=== PATIENT | male | born 1975 | race Caucasian/White ===

== ENCOUNTER 2016-04-02 19:25 | Inpatient (IN) | payer MEDICAID ==
--- NOTE | 2016-04-02 20:03 | EDPHY ---
H & P Time Seen by Provider: 04/02/16 20:03 HPI/ROS: CHIEF COMPLAINT: Fever HISTORY OF PRESENT ILLNESS: This 41-year-old patient of Jose Alfredo Germain has a history of testicular cancer got bleomycin chemotherapy on Saturday. Started having a fever or Saturday and has been on ciprofloxacin since Saturday. Today's fever was 102 at home and has been above 101.5 since he woke up this morning. Of note he has been spending a lot of time with a friend who was admitted to our hospital yesterday with pneumonia. He has a little bit of a chest congestion but no other symptoms. Fever is not associated with vomiting or diarrhea or skin rash. Moderate today. REVIEW OF SYSTEMS: Eye: no change in vision ENT: no sore throat Cardiac: no chest pain or syncope Pulmonary: No cough. No short of breath. Abdomen: no vomiting, diarrhea, abdominal pain Musculoskeletal: no back pain Skin: no rash Neuro: no headache Constitutional: HPI : no urinary symptoms A comprehensive 10 point review of systems is otherwise negative aside from elements mentioned in the history of present illness. PAST MEDICAL HISTORY: Testicular cancer spread to the lymph nodes. Right hand surgery. Social history: Here with . General Appearance: Alert and conversant, cooperative. Eyes: No scleral icterus. ENT, Mouth: Normal mucous membranes. Alopecia. Respiratory: Normal respiratory effort, breath sounds equal, lungs are clear to auscultation. Cardiovascular: Regular rate and rhythm. Gastrointestinal: Abdomen is soft and non tender. Neurological: Alert and oriented x3. Normally conversant. Face symmetric, normal movement and sensation in all extremities. Skin: Warm and dry, no rashes. Musculoskeletal: No peripheral edema and no joint swelling. Psychiatric: Not agitated. Emergency Department course/MDM: CBC, influenza, urine and chest x-ray. Does not meet SIRS criteria, cefipime and admit per oncologist Dr. Carmen at 2104. IV normal saline 2 L. does not look septic or toxic. Blood cultures. Cefepime 2 g IV. Admit to hospitalist. Does not definitively have an infection, antibiotics are given empirically because of neutropenia. [place] 2124. Smoking Status: Heavy smoker Constitutional: Initial Vital Signs Temperature (C) 37.4 C 04/02/16 19:32 Heart Rate 95 04/02/16 19:32 Respiratory Rate 18 04/02/16 19:32 Blood Pressure 129/87 H 04/02/16 19:32 O2 Sat (%) 96 04/02/16 19:32 O2 Delivery Mode Room Air Allergies/Adverse Reactions: No Known Allergies Allergy (Verified 04/02/16 19:30) Home Medications: Medication Instructions Recorded Advil 12/06/15 ACETAMINOPHEN 04/02/16 Ciprofloxacin 04/02/16 Ms Contin 04/02/16 Oxycodone HCl 04/02/16 Medical Decision Making - Diagnostics Imaging: Chest x-ray viewed independently by myself does not show pneumonia. Differential Diagnosis: Differential considered including but not limited to sepsis, pneumonia, UTI, viral syndrome, influenza. Consult/Admit Bed Type: [place] [id number], admit, cultures and cefipime - Data Points Laboratory Results: Laboratory Results 04/02/16 20:19 04/02/16 20:19 04/02/16 04/02/16 04/02/16 20:21 20:19 19:55 WBC 0.32 L* 10^3/uL (3.80-9.50) RBC 2.73 L 10^6/uL (4.40-6.38) Hgb 8.4 L g/dL (13.7-17.5) Hct 23.0 L % (40.0-51.0) MCV 84.2 fL (81.5-99.8) MCH 30.8 pg (27.9-34.1) MCHC 36.5 g/dL (32.4-36.7) RDW 13.2 % (11.5-15.2) Plt Count 79 L 10^3/uL (150-400) MPV 9.5 fL (8.7-11.7) Neut % (Auto) Not Reported Lymph % (Auto) Not Reported [place] % (Auto) Not Reported Eos % (Auto) Not Reported Baso % (Auto) Not Reported Nucleat RBC Rel Count 0.0 % (0.0-0.2) Absolute Neuts (auto) Not Reported Absolute Lymphs (auto) Not Reported Absolute Monos (auto) Not Reported Absolute Eos (auto) Not Reported Absolute Basos (auto) Not Reported Absolute Nucleated RBC 0.00 10^3/uL (0-0.01) Immature Gran % Not Reported Seg Neutrophils % 28 % Band Neutrophils % 3 % Lymphocytes % 46 % Monocytes % 22 % Eosinophils % 1 % Immature Gran # Not Reported Absolute Seg Neuts 0.09 L 10^/uL (1.70-6.50) Absolute Band Neuts 0.01 10^3/uL (0.00-0.70) Absolute Lymphocytes 0.15 L 10^3/uL (1.00-3.00) Absolute Monocytes 0.07 L 10^3/uL (0.30-0.80) Absolute Eosinophils 0.00 L 10^3/uL (0.03-0.40) Differential Comment RBC/WBC/PLT Morphology NORMAL (NORMAL) Atypical Lymphocytes 2+ H Platelet Estimate DECREASED L (ADEQ) Smear Review By Pending Sodium 131 L mEq/L (134-144) Potassium 3.2 L mEq/L (3.5-5.2) Chloride 93 L mEq/L (97-110) Carbon Dioxide 29 mEq/l (22-31) Anion Gap 9 mEq/L (8-16) BUN 13 mg/dL (7-23) Creatinine 0.8 mg/dL (0.7-1.3) Estimated GFR > 60 Glucose 121 H mg/dL (70-100) Calcium 8.3 L mg/dL (8.5-10.4) Urine Color YELLOW Urine Appearance CLEAR Urine pH 5.0 (5.0-7.5) Ur Specific [place] 1.026 (1.002-1.030) Urine Protein NEGATIVE (NEGATIVE) Urine Ketones NEGATIVE (NEGATIVE) Urine Blood NEGATIVE (NEGATIVE) Urine Nitrate NEGATIVE (NEGATIVE) Urine Bilirubin NEGATIVE (NEGATIVE) Urine Urobilinogen 4.0 H EU (0.2-1.0) Ur Leukocyte Esterase NEGATIVE (NEGATIVE) Ur Culture Indicated? NOT INDICATED (NI) Urine Glucose NEGATIVE (NEGATIVE) Influenza Typ A,B (DFA) NEGATIVE FOR FLU (NEGATIVE) Medications Given: Discontinued Medications Cefepime HCl 2 gm/ Dextrose 100 mls @ 200 mls/hr IV EDNOW ONE PRN Reason: Protocol Stop: 04/02/16 21:42 Last Admin: 04/02/16 21:50 Dose: 100 mls Sodium Chloride (Ns) 1,000 mls @ 0 mls/hr IV ONCE ONE PRN Reason: Wide Open Stop: 04/02/16 21:15 Last Admin: 04/02/16 21:15 Dose: 1,000 mls Departure - Departure Disposition: [facility] Acute Clinical Impression: Neutropenic fever Condition: Good
[2016-04-02 20:23] LABS: ADD DIFF? YES; ADD MORPH? NO; ADD SCAN? NO; ATYPICAL LYMPHOCYTE FLAG 90 (0-99); FRAGMENT RBC FLAG 0 (0-99); HEMOGLOBIN 8.4 g/dL (13.7-17.5); LEFT SHIFT FLG 30 (0-99); LIPEMIA HEMOLYSIS FLAG 90 (0-99); MEAN CELL HEMOGLOBIN 30.8 pg (27.9-34.1); MEAN CELL HEMOGLOBIN CONCENTR. 36.5 g/dL (32.4-36.7); MEAN CELL VOLUME 84.2 fL (81.5-99.8); MEAN PLATELET VOLUME 9.5 fL (8.7-11.7); PLATELET CLUMPS FLAG 0 (0-99); PLATELET COUNT 79 10^3/uL (150-400); RED BLOOD CELL COUNT 2.73 10^6/uL (4.40-6.38); RED CELL DISTRIBUTION WIDTH 13.2 % (11.5-15.2)
[2016-04-02 20:28] LABS: ANION GAP 9 mEq/L (8-16); CALCIUM 8.3 mg/dL (8.5-10.4); CARBON DIOXIDE 29 mEq/l (22-31); CHLORIDE 93 mEq/L (97-110); CREATININE 0.8 mg/dL (0.7-1.3); GLOMERULAR FILTRATION RATE > 60; GLUCOSE 121 mg/dL (70-100); POTASSIUM 3.2 mEq/L (3.5-5.2); SODIUM 131 mEq/L (134-144)
[2016-04-02 20:39] LABS: COLOR YELLOW; LEUKOCYTE ESTERASE,URINE NEGATIVE (NEGATIVE); NITRITE,URINE NEGATIVE (NEGATIVE)
[2016-04-02] MEDS ORDERED: CEFEPIME HCL 2 GM in D5W 100 ML IV ONE (21:13)
[2016-04-02] MEDS ORDERED: NS 1,000 ML IV ONE (21:14)
--- NOTE | 2016-04-02 21:42 | DX ---
Chest, PA and lateral. History: Cough. Fever. Findings: Heart size is within normal limits. Pulmonary vascularity is normal. The lungs are clear. No evidence of pleural effusion or pneumothorax. Minimal degenerative change is seen in the thoracic spine. Impression: No evidence of acute cardiopulmonary abnormality.
[2016-04-02 21:49] LABS: PLATELET ESTIMATE DECREASED (ADEQ)
[2016-04-02] MEDS ORDERED: ONDANSETRON DISINTEGRATING 4 MG TAB PO PRN (22:44)
[2016-04-02] MEDS ORDERED: ONDANSETRON 4 MG/2 ML VIAL IVP PRN (22:44)
[2016-04-02] MEDS: POTASSIUM Cl (KCl) 40 MEQ in NS 1,000 ML IV SCH (23:49)
[2016-04-03] MEDS ORDERED: LIDOCAINE 2% VISCOUS 15 ML UDCUP PO PRN (01:50)
--- NOTE | 2016-04-03 01:54 | PDGENHP ---
History and Physical - Chief Complaint Acute fever - History of Present Illness PCP: Dr. Aguila Primary oncologist: Dr. Germain HPI: A 41-year-old male presenting with acute fever characterized as a temperature of a 102 degrees F with associated chest congestion, odynophagia. Fever onset was 4 days ago and duration has been persistent thereafter. He was initially prescribed ciprofloxacin which she has been taking for the past 4 days and has not been alleviating fevers. The patient has been experiencing temperatures of at least 101.5 degrees each morning, and the temperatures are alleviated by ibuprofen and Tylenol. He has been taking fluconazole for his odynophagia he reports that it has alleviated the significant amount of his oral thrush. That being said, his odynophagia has resulted in reduced oral intake and associated weight loss. He is also utilizing viscous lidocaine symptomatically. He otherwise denies any abdominal pain, nausea vomiting or diarrhea. He denies any neck pain, cough, chest pain, shortness of breath. History Information - Allergies/Home Medication List Allergies/Adverse Reactions: No Known Allergies Allergy (Verified 04/02/16 19:30) Home Medications: Advil 12/06/15 [Last Taken 12/07/15] ACETAMINOPHEN 04/02/16 [Last Taken Unknown] Ciprofloxacin 04/02/16 [Last Taken Unknown] Ms Contin 04/02/16 [Last Taken Unknown] Oxycodone HCl 04/02/16 [Last Taken Unknown] I have personally reviewed and updated: family history, medical history, social history, surgical history - Past Medical History Additional medical history: Testicular cancer diagnosed in October of 2015, asthma - Surgical History Additional surgical history: 12/08/2015 left radical orchiectomy with penile condylomata; hernia repair; hand surgery - Family History Additional family history: No recent sick family contacts - Social History Smoking Status: Heavy smoker Alcohol Use: Occasionally Drug Use: None Additional social history: Normally independent in his ADLs Review of Systems ROS: 10pt was reviewed & negative except for what was stated in HPI & below Constitutional: Reports: fever EENMT: Reports: sore throat Physical Exam Temp Pulse Resp BP Pulse Ox 37.3 C 70 16 129/85 H 95 04/02/16 22:42 04/02/16 22:42 04/02/16 22:42 04/02/16 22:42 04/02/16 22:42 Constitutional: no apparent distress, chronically ill appearing, uncomfortable, No not in pain Eyes: PERRL, anicteric sclera, EOMI Ears, Nose, Mouth, Throat: moist mucous membranes, other (With rash on his left cheek, no glossitis) Cardiovascular: regular rate and rhythym, no murmur, rub, or gallop, No edema Respiratory: no respiratory distress, no rales or rhonchi, clear to auscultation Gastrointestinal: soft, non-tender abdomen, no palpable masses, No normoactive bowel sounds (Hyperactive bowel sounds), No distension Genitourinary: no bladder fullness, no bladder tenderness Skin: warm, normal color, no rashes or abrasions, no fluctuance, no induration, No mottled Musculoskeletal: full muscle strength, no muscle tenderness, normal joint ROM, no joint effusions Neurologic: AAOx3, sensation intact bilaterally, No weakness Psychiatric: interacting appropriately, not anxious, not encephalopathic, thought process linear Lab Data & Imaging Review 04/02/16 20:19 04/02/16 20:19 WBC 0.32 10^3/uL (3.80-9.50) L* 04/02/16 20:19 RBC 2.73 10^6/uL (4.40-6.38) L 04/02/16 20:19 Hgb 8.4 g/dL (13.7-17.5) L 04/02/16 20:19 Hct 23.0 % (40.0-51.0) L 04/02/16 20:19 MCV 84.2 fL (81.5-99.8) 04/02/16 20:19 MCH 30.8 pg (27.9-34.1) 04/02/16 20:19 MCHC 36.5 g/dL (32.4-36.7) 04/02/16 20:19 RDW 13.2 % (11.5-15.2) 04/02/16 20:19 Plt Count 79 10^3/uL (150-400) L 04/02/16 20:19 MPV 9.5 fL (8.7-11.7) 04/02/16 20:19 Neut % (Auto) Not Reported 04/02/16 20:19 Lymph % (Auto) Not Reported 04/02/16 20:19 [place] % (Auto) Not Reported 04/02/16 20:19 Eos % (Auto) Not Reported 04/02/16 20:19 Baso % (Auto) Not Reported 04/02/16 20:19 Nucleat RBC Rel Count 0.0 % (0.0-0.2) 04/02/16 20:19 Absolute Neuts (auto) Not Reported 04/02/16 20:19 Absolute Lymphs (auto) Not Reported 04/02/16 20:19 Absolute Monos (auto) Not Reported 04/02/16 20:19 Absolute Eos (auto) Not Reported 04/02/16 20:19 Absolute Basos (auto) Not Reported 04/02/16 20:19 Absolute Nucleated RBC 0.00 10^3/uL (0-0.01) 04/02/16 20:19 Immature Gran % Not Reported 04/02/16 20:19 Seg Neutrophils % 28 % 04/02/16 20:19 Band Neutrophils % 3 % 04/02/16 20:19 Lymphocytes % 46 % 04/02/16 20:19 Monocytes % 22 % 04/02/16 20:19 Eosinophils % 1 % 04/02/16 20:19 Immature Gran # Not Reported 04/02/16 20:19 Absolute Seg Neuts 0.09 10^/uL (1.70-6.50) L 04/02/16 20:19 Absolute Band Neuts 0.01 10^3/uL (0.00-0.70) 04/02/16 20:19 Absolute Lymphocytes 0.15 10^3/uL (1.00-3.00) L 04/02/16 20:19 Absolute Monocytes 0.07 10^3/uL (0.30-0.80) L 04/02/16 20:19 Absolute Eosinophils 0.00 10^3/uL (0.03-0.40) L 04/02/16 20:19 Differential Comment 04/02/16 20:19 RBC/WBC/PLT Morphology NORMAL (NORMAL) 04/02/16 20:19 Atypical Lymphocytes 2+ H 04/02/16 20:19 Platelet Estimate DECREASED (ADEQ) L 04/02/16 20:19 Sodium 131 mEq/L (134-144) L 04/02/16 20:19 Potassium 3.2 mEq/L (3.5-5.2) L 04/02/16 20:19 Chloride 93 mEq/L (97-110) L 04/02/16 20:19 Carbon Dioxide 29 mEq/l (22-31) 04/02/16 20:19 Anion Gap 9 mEq/L (8-16) 04/02/16 20:19 BUN 13 mg/dL (7-23) 04/02/16 20:19 Creatinine 0.8 mg/dL (0.7-1.3) 04/02/16 20:19 Estimated GFR > 60 04/02/16 20:19 Glucose 121 mg/dL (70-100) H 04/02/16 20:19 Calcium 8.3 mg/dL (8.5-10.4) L 04/02/16 20:19 Urine Color YELLOW 04/02/16 19:55 Urine Appearance CLEAR 04/02/16 19:55 Urine pH 5.0 (5.0-7.5) 04/02/16 19:55 Ur Specific [place] 1.026 (1.002-1.030) 04/02/16 19:55 Urine Protein NEGATIVE (NEGATIVE) 04/02/16 19:55 Urine Ketones NEGATIVE (NEGATIVE) 04/02/16 19:55 Urine Blood NEGATIVE (NEGATIVE) 04/02/16 19:55 Urine Nitrate NEGATIVE (NEGATIVE) 04/02/16 19:55 Urine Bilirubin NEGATIVE (NEGATIVE) 04/02/16 19:55 Urine Urobilinogen 4.0 EU (0.2-1.0) H 04/02/16 19:55 Ur Leukocyte Esterase NEGATIVE (NEGATIVE) 04/02/16 19:55 Ur Culture Indicated? NOT INDICATED (NI) 04/02/16 19:55 Urine Glucose NEGATIVE (NEGATIVE) 04/02/16 19:55 Influenza Typ A,B (DFA) NEGATIVE FOR FLU (NEGATIVE) 04/02/16 20:21 Visualized and Interpreted Chest x-ray results: Yes Chest X-Ray results: no infiltrate Assessment & Plan Assessment: 41-year-old male presents with systemic inflammatory response syndrome and neutropenic fever Plan: 1. Systemic inflammatory response syndrome. Acute, new problem this provider, further workup indicated. Evidenced by tachycardia plus documented fever of 102 degrees F prior to presentation plus severe neutropenia, unclear source of infection -continue on high rate IV fluids -blood culture sent -continue empiric IV antibiotics -continue to monitor CBC -engage in any further infectious workup as indicated if symptomatic 2. Neutropenic fever. Acute, persistent fevers x4 days despite oral ciprofloxacin therapy, has consequently failed outpatient oral antibiotic therapy and requires inpatient IV antibiotics -discussed with Dr. Krause, she has reported to me that the patient was initiated on IV cefepime and will continue this q.8 hours -blood culture sent, monitor fever curve -considered the fever could be secondary to severe Jaimee esophagitis and provide ongoing fluconazole therapy -patient remains severely neutropenic -will require at least 24 hours of being afebrile prior to DD escalation of antibiotics -hold on Infectious Disease consultation at this time, unless patient does not defervesce 3. Hyponatremia. Acute, most likely secondary to hypovolemia in the setting of above -continue normal saline and recheck serum sodium level in a.m. 4. Hypokalemia. Most likely secondary to poor oral intake, supplement with IV fluids 5. Suspected esophageal candidiasis. Symptomatically severe, provide pain medications and viscous lidocaine -continue on oral fluconazole -if patient is not symptomatically improving, would recommend considering IV antifungals versus upper endoscopy to evaluate for erosiveness 6. Chronic pain with continuous opiate dependency. Patient's chronic pain is secondary to esophagitis, continue on morphine sulfate 30 mg 3 times daily as well as as needed oxycodone immediate release 5-15 mg q.4 hours p.r.n. 7. Testicular cancer. Reviewed outside records including 12/08/[address] Casanova, characterizing his left radical orchiectomy and outpatient referral to Dr. Germain -patient recently received bleomycin on 03/27/2016 -Dr. Carmen has been contacted by the emergency department and Oncology will consult in this patient's care 8. Pancytopenia. Secondary to chemotherapy, continue to monitor CBC Diet. Regular as tolerated Prophylaxis. High risk patient, from currently contraindicated given thrombocytopenia, SCDs Code. Full Disposition. Anticipated discharge uncertain this time, anticipated length stay is greater than 48 hours warranting inpatient admission status for systemic inflammatory response syndrome in the setting of severe neutropenia requiring further workup and treatment outlined above. The patient's initial observation order was entered in air, patient's order should have initially stated inpatient admission status for all the reasons outlined above.
[2016-04-03] MEDS: ALBUTEROL 60 PUFFS/8 GM MDI IH PRN (01:56)
[2016-04-03] MEDS: morphINE SR 30 MG TAB PO SCH ×4 (02:12→21:41)
[2016-04-03] MEDS: oxyCODONE IR 5 MG TAB PO PRN ×6 (02:12→23:43)
[2016-04-03 04:46] LABS: ADD MORPH? NO; ADD SCAN? NO; ATYPICAL LYMPHOCYTE FLAG 90 (0-99); FRAGMENT RBC FLAG 0 (0-99); HEMATOCRIT 19.8 % (40.0-51.0); HEMOGLOBIN 7.2 g/dL (13.7-17.5); LEFT SHIFT FLG 40 (0-99); LIPEMIA HEMOLYSIS FLAG 90 (0-99); MEAN CELL HEMOGLOBIN 30.6 pg (27.9-34.1); MEAN CELL HEMOGLOBIN CONCENTR. 36.4 g/dL (32.4-36.7); MEAN CELL VOLUME 84.3 fL (81.5-99.8); MEAN PLATELET VOLUME 9.2 fL (8.7-11.7); PLATELET CLUMPS FLAG 10 (0-99); PLATELET COUNT 65 10^3/uL (150-400); RED BLOOD CELL COUNT 2.35 10^6/uL (4.40-6.38); RED CELL DISTRIBUTION WIDTH 13.3 % (11.5-15.2)
[2016-04-03 04:47] LABS: ALANINE AMINOTRANSFERASE 31 IU/L (21-72); ALBUMIN 2.6 g/dL (3.5-5.0); ALKALINE PHOSPHATASE 49 IU/L (38-126); ANION GAP 7 mEq/L (8-16); ASPARTATE AMINOTRANSFERASE 18 IU/L (17-59); BILIRUBIN,TOTAL 0.7 mg/dL (0.1-1.4); CALCIUM 7.8 mg/dL (8.5-10.4); CARBON DIOXIDE 27 mEq/l (22-31); CHLORIDE 100 mEq/L (97-110); CREATININE 0.7 mg/dL (0.7-1.3); GLOMERULAR FILTRATION RATE > 60; GLUCOSE 95 mg/dL (70-100); POTASSIUM 3.9 mEq/L (3.5-5.2); SODIUM 134 mEq/L (134-144); TOTAL PROTEIN 5.5 g/dL (6.3-8.2)
[2016-04-03 04:58] LABS: ADD DIFF? NO
[2016-04-03] MEDS ORDERED: CEFEPIME HCL 2 GM in D5W 100 ML IV SCH (06:00)
[2016-04-03] MEDS ORDERED: FLUCONAZOLE 100 MG TAB PO SCH (09:00)
[2016-04-03] MEDS: ACETAMINOPHEN 325 MG TAB PO PRN ×4 (09:34→23:43)
--- NOTE | 2016-04-03 11:59 | GCON ---
[f rep st] CONSULTATION ONCOLOGY CONSULTATION NOTE. REASON FOR ADMISSION: Neutropenic fever with history of metastatic testicular cancer. 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 The patient's history dates back to November of 2015 when he presented with a several month history of left groin pain and left testicular swelling. He underwent a left inguinal orchiectomy in November demonstrating a 6 cm mixed germ cell tumor which was 70 % embryonal, 20% yolk sac and 10% seminoma. Preoperative beta HCG was elevated at 9.7, LDH was slightly elevated at 294 and alpha-fetoprotein was 238. Postoperatively, his alpha-fetoprotein fell to 127. Initial CT scan showed bilateral axillary and subpectoral lymphadenopathy with a left axillary node measuring 2.1 cm. In addition, he had retroperitoneal adenopathy with nodes up to 1.6 cm and a 13 mm pulmonary nodule. He was felt to have intermediate risk stage IIIA (T2 N2 M1a). The patient is being treated with curative intent with 4 cycles of bleomycin, etoposide and cisplatin. Today is day #15, cycle #4 BEP and would be his last day of chemotherapy. He was scheduled to receive bleomycin today. The patient, for the most part, has been tolerating his treatment well. He had a low-grade fever last Saturday and was started empirically on Cipro. He has also been recently treated for thrush and completed a 10 day course of fluconazole about 2 days ago. He presented to the emergency room yesterday after having ongoing fevers despite being on the Cipro for 5 days. His T max yesterday was 102. He denies any shortness of breath or cough. He denies any diarrhea or abdominal pain. His primary complaint is one of extreme tenderness throughout his mouth and swollen, tender, bilateral cervical nodes. Chest x-ray in the emergency room was unremarkable. PAST MEDICAL HISTORY: Unremarkable. PAST SURGICAL HISTORY: Left inguinal orchiectomy, bilateral hernia repair as an . FAMILY HISTORY: Notable for mother having breast cancer. His father is alive and well. SOCIAL HISTORY: He works in construction. Previously was drinking appropriately 14 drinks a week. He has been receiving oxycodone for chemotherapy related to stomatitis since January and there has been some concern on his increasing oxycodone use. REVIEW OF SYSTEMS: A 10 point review of systems otherwise negative other than HPI. PHYSICAL EXAMINATION: GENERAL: He is nontoxic, fatigue-appearing male who appears comfortable. VITAL SIGNS: Blood pressure 118/80, heart rate 85, O2 sat 93% on room air. T max 38.9. HEENT: Pupils equal. Sclerae anicteric. Oropharynx without any evidence of mucositis or thrush. He reports extreme tenderness, however, throughout the lining of his mouth. LUNGS: Clear to auscultation. HEART: Regular rate. ABDOMEN: Soft, nontender. EXTREMITIES: No edema. NECK: He has bilateral palpable tender cervical adenopathy, measuring up to 2 cm. LABORATORY DATA: White blood cell count 0.28, hematocrit 19.8, platelets are 65. Metabolic panel is unremarkable. Most recent beta HCG March 27 undetectable. Most recent alpha-fetoprotein of 4.9 on March 27. The chest x-ray is unremarkable. IMPRESSION: This is a 41-year-old male with a stage IIIA (T2 N2 M1a) mixed germ cell tumor who has now completed 4 cycles of cisplatin, etoposide and bleomycin. He is admitted with a neutropenic fever with profound pancytopenia. The fever is occurring in the setting of being on ciprofloxacin for the last 5 days. His exam is notable for bilateral tender cervical adenopathy. He has been started empirically on cefepime and pancultured. He is nontoxic. He reports extreme tenderness throughout his mouth but I did not see any obvious abnormalities other than some bilateral tonsillar enlargement, which is unclear whether or not this is new or old. Strep throat or mononucleosis would be a consideration. He is due for his last treatment today with bleomycin, will hold that for now. There is some thought that growth factor may exacerbate the risk of bleo lung toxicity, therefore, will hold on granix for now. PLAN: 1. Will follow up on cultures and continue cefepime for now. 2. I think an Infectious Disease consult is reasonable given the degree of neutropenia and the bilateral cervical adenopathy. 3. He is asymptomatic with regard to the anemia and is not inclined to have a transfusion at this time. I think it is reasonable for us to monitor closely. 4. Will hold bleomycin for now and continue to follow with you. /[id number]/MODL MTDD
[2016-04-03] MEDS: ACYCLOVIR 400 MG TAB PO SCH ×2 (13:49→20:45)
[2016-04-03] MEDS: VANCOMYCIN HCL/NORMAL SALINE 250 ML IV SCH (13:49)
[2016-04-03] MEDS: MEROPENEM 1 GM in NS 100 ML IV SCH ×2 (14:58→21:41)
--- NOTE | 2016-04-03 16:35 | GCON ---
[f rep st] CONSULTATION INFECTIOUS DISEASE CONSULTATION DATE OF CONSULTATION: 04/03/2016 REFERRING PHYSICIAN: Alice Carmen MD REASON FOR CONSULTATION: Neutropenic fever, for further evaluation and management. CHIEF COMPLAINT: Fevers, mild pain. 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 He is status post left inguinal orchiectomy in November, and has been on treatment with curative intent with 4 cycles of bleomycin, etoposide, and cisplatin. Last week, he apparently started to reyna ve some fevers intermittently, ranging between 100 and 101. He saw his oncologist, Dr. Germain, was placed on ciprofloxacin empirically. He had apparently also been dealing with oral candidiasis and c ompleted a 10-day course of fluconazole 2 days ago. Due to ongoing fevers while on Cipro, ranging up to 102, he came in for further admission. He states that he has had severe mouth pain since he has been on chemotherapy, and has had thrush intermittently as well. He stated that the fluconazole did help him, but did not quite completely resolve the thrush. Most recently, he has had pain, particula rly on the under surface of his tongue on the inner aspect of his lower mouth and gums. This causes quite a bit of pain with eating. He denies any sore throat. At this point in time, he denies any pa inful swallowing or difficulty swallowing as most of his pain is really concentrated in the lower par t of his mouth. With the fevers, he has had some shaking chills as well, and then followed by drench ing sweats. He was placed on cefepime on admission. Infectious Disease is now consulted for further evaluation and opinion. REVIEW OF SYSTEMS: CONSTITUTIONAL: Fevers and shaking chills. HEAD: Denies any headaches. EYES: No change in vision, although he does report having a slightly swollen left eyelid intermittently si nce the time he has been on chemotherapy. He denies any pain associated with the swelling. ENT: He denies any nasal drainage, pressure over the sinuses or postnasal drip. He denies any ear pain or e ar drainage. Again, as above, the mouth pain and the thrush as stated above. CARDIOVASCULAR: Denie s any chest pain or rapid heartbeat. RESPIRATORY: Denies any shortness of breath, cough. He occasi onally has sputum production. Denies any nausea, vomiting, abdominal pain, or diarrhea. : Denies any dysuria or hematuria. BACK: Denies any flank pain or back pain. MUSCULOSKELETAL: Denies any joint pains or muscle aches. SKIN: Denies any other rashes or open wounds. He has had some weight loss. Rest of the 10-point review of systems essentially negative except for above. 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 PAST SURGICAL HISTORY: Significant for left inguinal orchiectomy, bilateral hernia repair as an infa nt. ALLERGIES: No known drug allergies. SOCIAL HISTORY: He smokes about 4-5 cigarettes a day, and he is trying to quit. Alcohol, he drinks occasionally, but has not drank much since he has been on chemotherapy. He, 10 years ago, snorted co antonio, but has not done any illicit drugs since that time. 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 He is recently as of October of 2015. He has no k ids. He has not been around small children. He lives in a condo, and his neighbor recently was diag nosed with pneumonia. He has not traveled outside of [place] or out of the country recently. FAMILY HISTORY: Significant for mother having 2 episodes of breast cancer, status post bilateral mas tectomies. Father had skin cancer. MEDICATIONS: As per MAY. PHYSICAL EXAMINATION: VITAL SIGNS: T-max today 38.9, temperature current 37.3, pulse is 100, respir atory rate is 18, blood pressure 107/88, saturation 91% on room air. GENERAL: Patient is resting in bed. No acute respiratory distress. Awake, alert, and oriented x3. HEENT: Head is normocephalic, atraumatic. He has no hair. Eyes: He has mild swelling of the left upper eyelid without pain or t enderness on palpation. There is no conjunctival injection. No petechiae noted. Oropharynx: He reyna s some evidence of poor dental hygiene, some whitish plaques, especially on the inner aspect of the g um, particularly on the right lower gumline, and the teeth with some mild gingivitis. He has some ev idence of mucositis on the undersurface of his tongue. It is quite painful, and some white specks on the lateral aspect of his tongue as well. Tonsils are moderately swollen, but patient states that t hey are usually large. There is no erythema posteriorly as well. There are no tonsillar exudates no tiffanie. NECK: Submentally, he has bilateral lymph nodes enlarged, which are tender. In the neck itsel f, it is nontender to palpation. There is no erythema. CARDIOVASCULAR: S1, S2. Regular rate and r hythm. There is small soft systolic murmur appreciated. RESPIRATORY: Clear to auscultation bilater ally. No rhonchi or rales appreciated. ABDOMEN: Positive bowel sounds in all 4 quadrants. Soft, n ontender, nondistended. No organomegaly appreciated. BACK: No obvious rashes. MUSCULOSKELETAL: N o obvious joint effusions or painful palpation on joints. SKIN: No obvious rashes or open wounds. LABS: White blood cell count is 0.28, hemoglobin 7.2, platelets are 65, neutrophil count is 21%. AN C of 6. Chemistry: Sodium 134, potassium 3.9, chloride 100, bicarb 27, BUN is 9, creatinine 0.7. L FTs are within the normal range. Urinalysis: Negative nitrite, negative leukocyte esterase, urobili nogen 4. Influenza type A and B DFA negative. Blood cultures x2 sets are pending. Chest x-ray with out evidence of pneumonia. ASSESSMENT: 1. Febrile neutropenia. 2. Mucositis. 3. Oral candidiasis. PLAN: At this point in time, multiple studies are pending, including blood cultures. Given the fact that he has evidence of mucositis, particularly on the undersurface of his tongue that is quite pain ful, would broaden his antimicrobials. I have swabbed this area to evaluate for herpes simplex virus 1 and 2 DNA and varicella zoster virus. Would add vancomycin and acyclovir empirically until studie s have resulted further regarding this. Would also again, given the extent of issues involving the m outh with pain, mucositis, etcetera, would change cefepime to meropenem for additional anaerobic cove rage as well. The patient does have some ongoing evidence of oral candidiasis that did respond to fl uconazole, so we will continue fluconazole for now. However, if it does not continue to improve, we may need to consider changing to micafungin. We will change fluconazole to IV form, given his diffic ulty with mouth pain. Await blood cultures to further direct antimicrobial therapy. The above plan was explained in detail to the patient and his at the bedside. Care was coordinated and discuss ed with the oncology team, Dr. Carmen as well. If mouth pain becomes more progressive or certainly extends down to the neck, then would recommend im aging by CT to further evaluation any extension of infection. Thank you very much for allowing this opportunity to care for your patient in consultation. /[id number]/MODL
--- NOTE | 2016-04-03 19:01 | HOSPPROG ---
Hospitalist Progress Note Assessment/Plan: DIAGNOSIS: # acute sepsis # Neutropenic fever with uncertain source, unresponsive to Levaquin in the outpatient setting # thrush and odynophagia responding well to Diflucan # pancytopenia of chemotherapy # hyponatremia and hypokalemia # testicular cancer, status post orchiectomy radical on the left, on bleomycin therapy with 1 dose left in his regimen PLANS: I reviewed the patient's condition and care plan in detail with Dr. Alice Carmen Bleomycin is held at this time as it was due today Continue current antibiotic coverage Follow cultures and cell counts closely Continue general supportive care, fluid resuscitation as indicated Neutropenic precautions Infectious disease consult has been requested and Dr. Bell will see the patient At this time DVT prophylaxis is mechanical only due to thrombocytopenia SUBJECTIVE: Patient overall feels notably better and has less of odynophagia and no throat pain or mouth pain Less chills and sweats today No other new symptoms at this time; not coughing today OBJECTIVE Vitals reviewed: Still having significant fevers however vital signs of otherwise normalized Exam: alert oriented skin warm dry color ok resps not labored lungs clear BSs heart regular abd soft nondistended nontender, bowel sounds present limbs warm, no edema iv site ok Other than negative influenza serology, Viral serologies and cultures are all still pending at this time Objective: Vital Signs Temp Pulse Resp BP Pulse Ox 38.1 C 84 16 119/81 H 90 L 04/03/16 15:50 04/03/16 15:50 04/03/16 15:50 04/03/16 15:50 04/03/16 15:50 Laboratory Results 04/03/16 04:13 04/03/16 04:13 04/02/16 04/03/16 04/04/16 06:59 06:59 06:59 Intake Total 2425 Balance 2425 ICD10 Worksheet Patient Problems: Problems Problem Status Diagnosed Neutropenic fever Acute
[2016-04-03] MEDS: POTASSIUM Cl (KCl) 40 MEQ in NS 1,000 ML IV SCH (20:20)
[2016-04-04] MEDS: VANCOMYCIN HCL/NORMAL SALINE 250 ML IV SCH ×2 (01:25→13:15)
[2016-04-04] MEDS: oxyCODONE IR 5 MG TAB PO PRN ×5 (05:07→21:07)
[2016-04-04] MEDS: ACYCLOVIR 400 MG TAB PO SCH ×3 (05:09→21:18)
[2016-04-04] MEDS: ACETAMINOPHEN 325 MG TAB PO PRN ×3 (05:10→21:07)
[2016-04-04] MEDS: MEROPENEM 1 GM in NS 100 ML IV SCH ×3 (05:12→21:19)
[2016-04-04] MEDS: ALBUTEROL 60 PUFFS/8 GM MDI IH PRN (05:12)
[2016-04-04 05:27] LABS: ATYPICAL LYMPHOCYTE FLAG 0 (0-99); FRAGMENT RBC FLAG 0 (0-99); HEMATOCRIT 19.3 % (40.0-51.0); LEFT SHIFT FLG 60 (0-99); LIPEMIA HEMOLYSIS FLAG 90 (0-99); MEAN CELL HEMOGLOBIN 30.7 pg (27.9-34.1); MEAN CELL HEMOGLOBIN CONCENTR. 35.8 g/dL (32.4-36.7); MEAN CELL VOLUME 85.8 fL (81.5-99.8); MEAN PLATELET VOLUME 9.8 fL (8.7-11.7); PLATELET CLUMPS FLAG 10 (0-99); PLATELET COUNT 54 10^3/uL (150-400); RED BLOOD CELL COUNT 2.25 10^6/uL (4.40-6.38); RED CELL DISTRIBUTION WIDTH 13.9 % (11.5-15.2)
[2016-04-04 05:31] LABS: ADD MORPH? NO; HEMOGLOBIN 6.9 g/dL (13.7-17.5)
[2016-04-04 05:36] LABS: ADD DIFF? NO; ADD SCAN? NO
[2016-04-04 05:43] LABS: ALANINE AMINOTRANSFERASE 32 IU/L (21-72); ALBUMIN 2.3 g/dL (3.5-5.0); ALKALINE PHOSPHATASE 49 IU/L (38-126); ANION GAP 5 mEq/L (8-16); ASPARTATE AMINOTRANSFERASE 24 IU/L (17-59); BILIRUBIN,TOTAL 0.3 mg/dL (0.1-1.4); CALCIUM 7.9 mg/dL (8.5-10.4); CARBON DIOXIDE 29 mEq/l (22-31); CHLORIDE 101 mEq/L (97-110); CREATININE 0.7 mg/dL (0.7-1.3); GLOMERULAR FILTRATION RATE > 60; GLUCOSE 101 mg/dL (70-100); POTASSIUM 4.5 mEq/L (3.5-5.2); SODIUM 135 mEq/L (134-144)
[2016-04-04] MEDS: morphINE SR 30 MG TAB PO SCH ×3 (06:08→21:18)
[2016-04-04] MEDS: POTASSIUM Cl (KCl) 40 MEQ in NS 1,000 ML IV SCH (06:09)
[2016-04-04] MEDS: FLUCONAZOLE/NaCl 100 MG in BAG 0 ML IV SCH (08:45)
--- NOTE | 2016-04-04 14:26 | PCMIDPN ---
Assessment/Plan: Neutropenic fever, ANC 100: no fever since yesterday, no focal exam findings except for mucositis. Unclear source, no port --continue vancomycin, Merrem. Like dc vancomycin tomorrow if blood cx remain negative. Defer vanco T, since dc eminent Mucositis: stable --continue fluconazole for 10 days --continue acyclovir until HSV studies back meds vancomycin 1gm IV q12 #1 acyclovir 400mg PO TID, #1 Fluconazole 100mg IV D, #2 Merrem 1gm IV q8, #1 (s/p 1 day cefepime) Care coordinated with Dr. Jaimes and Dr. Art Subjective: can I go home tomorrow if no more fever mouth pain stable no abdominal pain, SOB, cough, rash, diarrhea, LAST. Energy stable Objective: Vital Signs Temp Pulse Resp BP Pulse Ox 37.1 C 94 18 108/69 93 04/04/16 11:48 04/04/16 11:48 04/04/16 11:48 04/04/16 11:48 04/04/16 11:48 Laboratory Results 04/04/16 05:05 04/04/16 05:05 04/03/16 04/04/16 04/05/16 05:59 05:59 05:59 Intake Total 2425 3050 Balance 2425 3050 - Physical Exam General Appearance: alert, no apparent distress, non-toxic EENT: other (mucositis, particularly on gums;MMM; fair dentition) Respiratory: lungs clear Neck: supple Cardiac/Chest: regular rate, rhythm, other (+S3) Extremities: other (Mild R hand swelling (not new); peeling skin hands), No pedal edema Abdomen: normal bowel sounds, non-tender, soft Skin: pallor, No rash Neuro/Psych: alert, normal mood/affect, oriented x 3 - Line/s PIV Lines: other (R forearm), No drainage, No erythema ICD10 Worksheet Patient Problems: Problems Problem Status Diagnosed Neutropenic fever Acute
--- NOTE | 2016-04-04 17:57 | HOSPPROG ---
Hospitalist Progress Note Assessment/Plan: DIAGNOSIS: # acute sepsis # Neutropenic fever with uncertain source, unresponsive to Levaquin in the outpatient setting # thrush and odynophagia responding well to Diflucan and antiviral # pancytopenia of chemotherapy # hyponatremia and hypokalemia # testicular cancer, status post orchiectomy radical on the left, on bleomycin therapy with 1 dose left in his regimen PLANS: I reviewed the patient's condition and care plan in detail with Dr. Shae Silver Bleomycin is held at this time Continue current antibiotic coverage Follow cultures and cell counts closely Continue general supportive care, fluid resuscitation as indicated Neutropenic precautions At this time DVT prophylaxis is mechanical only due to thrombocytopenia SUBJECTIVE: Patient overall feels notably better with no chills or sweats, no odynophagia but some ongoing intraoral pain Less chills and sweats today No other new symptoms at this time; not coughing today OBJECTIVE Vitals reviewed: Now with T-max 37.5degrees, other vitals stable Exam: alert oriented skin warm dry color ok resps not labored lungs clear BSs heart regular abd soft nondistended nontender, bowel sounds present limbs warm, no edema iv site ok Other than negative influenza serology, Viral serologies and cultures are all still pending at this time Objective: Vital Signs Temp Pulse Resp BP Pulse Ox 37.5 C 84 18 117/75 93 04/04/16 16:00 04/04/16 16:00 04/04/16 16:00 04/04/16 16:00 04/04/16 16:00 Laboratory Results 04/04/16 05:05 04/04/16 05:05 04/03/16 04/04/16 04/05/16 06:59 06:59 06:59 Intake Total 2425 3050 Balance 2425 3050 ICD10 Worksheet Patient Problems: Problems Problem Status Diagnosed Neutropenic fever Acute
--- NOTE | 2016-04-04 19:15 | SOAPPROG ---
SOAP Progress Note Assessment/Plan: A/P: * Neutropenic fever without source: afeb on abx. Appreciate ID. No G-CSF given tx with bleomycin. * IIIA NSGCT: C4D16 (last dose) Bleomycin due yesterday. Will give tomorrow. 04/04/16 19:22 Subjective: S: Eager to go home. No cough, dyspnea. O: VS reviewed. Afebrile. Normal O2 sats. Gen: NAD, A&O. Lungs: CTA, breathing comfortably. CV: no edema. Laboratory Tests 04/04/16 05:05 WBC 0.57 L* Hgb 6.9 L Plt Count 54 L Objective: Vital Signs Temp Pulse Resp BP Pulse Ox 37.5 C 84 18 117/75 93 04/04/16 16:00 04/04/16 16:00 04/04/16 16:00 04/04/16 16:00 04/04/16 16:00 Laboratory Results 04/04/16 05:05 04/04/16 05:05 04/03/16 04/04/16 04/05/16 05:59 05:59 05:59 Intake Total 2425 3050 1999 Balance 2425 3050 1999 ICD10 Worksheet Patient Problems: Problems Problem Status Diagnosed Neutropenic fever Acute
[2016-04-05] MEDS: oxyCODONE IR 5 MG TAB PO PRN ×6 (02:04→22:07)
[2016-04-05] MEDS: VANCOMYCIN HCL/NORMAL SALINE 250 ML IV SCH (02:04)
[2016-04-05] MEDS: morphINE SR 30 MG TAB PO SCH ×3 (06:21→21:03)
[2016-04-05] MEDS: ACETAMINOPHEN 325 MG TAB PO PRN ×3 (06:21→21:10)
[2016-04-05] MEDS: MEROPENEM 1 GM in NS 100 ML IV SCH ×3 (06:21→21:03)
[2016-04-05] MEDS: ACYCLOVIR 400 MG TAB PO SCH ×3 (06:22→21:03)
[2016-04-05] MEDS: FLUCONAZOLE/NaCl 100 MG in BAG 0 ML IV SCH (07:50)
--- NOTE | 2016-04-05 11:07 | PCMIDPN ---
Assessment/Plan: Assessment: Neutropenic fever-unclear source. On both vancomycin and meropenem at present. Also on fluconazole for thrush. Had mild fevers overnight. Has no localizing complaint. His neutropenia is significant at present. Due for his last bleomycin dose this afternoon. Would continue the meropenem but discontinue the vancomycin given no isolation of gram positives. Continue fluconazole. Plan: 1. Continue meropenem and fluconazole. 2. Discontinue vancomycin. 3. Follow culture results. 4. Follow fever curve and absolute neutrophil counts. Subjective: Patient is resting comfortably in bed. He appears nontoxic. He has no localizing symptoms or complaints. Wants to go home. Objective: Vancomycin #2 Meropenem #2 Fluconazole #3 Acyclovir # 2 Vital Signs Temp Pulse Resp BP Pulse Ox 36.9 C 93 18 119/72 92 04/05/16 07:43 04/05/16 07:43 04/05/16 07:43 04/05/16 07:43 04/05/16 07:43 Laboratory Results 04/04/16 05:05 04/04/16 05:05 04/04/16 04/05/16 04/06/16 05:59 05:59 05:59 Intake Total 3050 2720 Balance 3050 2720 - Physical Exam General Appearance: WD/WN, alert, no apparent distress, non-toxic Respiratory: lungs clear, normal breath sounds, No respiratory distress Cardiac/Chest: regular rate, rhythm, No tachycardia Extremities: non-tender, normal inspection Skin: normal color, warm/dry, No rash Neuro/Psych: alert, normal mood/affect, oriented x 3 ICD10 Worksheet Patient Problems: Problems Problem Status Diagnosed Neutropenic fever Acute
[2016-04-05] MEDS ORDERED: BLEOMYCIN SULFATE IV SCH (13:00)
[2016-04-05] MEDS ORDERED: NS IV SCH (13:00)
--- NOTE | 2016-04-05 15:30 | HOSPPROG ---
Hospitalist Progress Note Assessment/Plan: DIAGNOSIS: # acute sepsis # Neutropenic fever with uncertain source, unresponsive to Levaquin in the outpatient setting # thrush and odynophagia responding well to Diflucan and antiviral # pancytopenia of chemotherapy; no indication for transfusion thus far but remains severely immunocompromised # hyponatremia and hypokalemia # testicular cancer, status post orchiectomy radical on the left, on bleomycin therapy with 1 dose left in his regimen He continues to have fevers at this time in the setting of severe neutropenia, with no identified organism or definitive site of infection. It is possible that this is related to his thrush and possible esophagitis with that, however the symptoms from that problem getting better with therapy despite continued fevers. PLANS: I reviewed the patient's condition and care plan in detail with Dr. Sumeet Palencia Bleomycin is held at this time Continue current antibiotic coverage Follow current cultures and will get another blood culture now; Follow cell counts closely Continue general supportive care, fluid resuscitation as indicated Neutropenic precautions At this time DVT prophylaxis is mechanical only due to thrombocytopenia SUBJECTIVE: Patient overall feels notably better with no chills or sweats, no odynophagia; intraoral pain is better today Less chills and sweats today No other new symptoms at this time; not coughing today OBJECTIVE Vitals reviewed: T-max 38.1 degrees this morning, vitals otherwise stable Exam: alert oriented skin warm dry color ok resps not labored lungs clear BSs heart regular abd soft nondistended nontender, bowel sounds present limbs warm, no edema iv site ok Other than negative influenza serology, Viral serologies and cultures are all still pending at this time Objective: Vital Signs Temp Pulse Resp BP Pulse Ox 37.4 C 80 18 123/74 H 90 L 04/05/16 11:37 04/05/16 11:37 04/05/16 11:37 04/05/16 11:37 04/05/16 11:37 Laboratory Results 04/04/16 05:05 04/04/16 05:05 04/04/16 04/05/16 04/06/16 06:59 06:59 06:59 Intake Total 3050 2720 Balance 3050 2720 ICD10 Worksheet Patient Problems: Problems Problem Status Diagnosed Neutropenic fever Acute
--- NOTE | 2016-04-05 17:40 | SOAPPROG ---
SOAP Progress Note Assessment/Plan: Assessment: Assessment/Plan: A/P: * Neutropenic fever without source: afeb on abx. Appreciate ID. No G-CSF given tx with bleomycin. Still has enlarged cervical lymph nodes R>L. * IIIA NSGCT: C4D16 (last dose) Bleomycin today. Done with chemotherapy. Subjective: no new symptoms, mouth still hurts Objective: Vital Signs Temp Pulse Resp BP Pulse Ox 36.6 C 79 18 122/68 H 91 L 04/05/16 16:00 04/05/16 16:00 04/05/16 16:00 04/05/16 16:00 04/05/16 16:00 Laboratory Results 04/04/16 05:05 04/04/16 05:05 04/04/16 04/05/16 04/06/16 05:59 05:59 05:59 Intake Total 3050 2720 1600 Balance 3050 2720 1600 Physical Exam - Physical Exam General Appearance: alert, no apparent distress Neck: supple Respiratory: lungs clear Abdomen: non-tender, soft Extremities: No pedal edema Neuro/Psych: alert ICD10 Worksheet Patient Problems: Problems Problem Status Diagnosed Neutropenic fever Acute
[2016-04-05 18:53] LABS: SPECIMEN SOURCE MOUTH (()); VARICELLA ZOSTER NEGATIVE (Negative)
[2016-04-06] MEDS: ACETAMINOPHEN 325 MG TAB PO PRN (01:55)
[2016-04-06] MEDS: oxyCODONE IR 5 MG TAB PO PRN ×3 (01:56→12:18)
[2016-04-06 05:29] LABS: ADD MORPH? NO; ATYPICAL LYMPHOCYTE FLAG 0 (0-99); FRAGMENT RBC FLAG 0 (0-99); HEMATOCRIT 20.7 % (40.0-51.0); HEMOGLOBIN 7.4 g/dL (13.7-17.5); LEFT SHIFT FLG 40 (0-99); LIPEMIA HEMOLYSIS FLAG 90 (0-99); MEAN CELL HEMOGLOBIN 30.6 pg (27.9-34.1); MEAN CELL HEMOGLOBIN CONCENTR. 35.7 g/dL (32.4-36.7); MEAN CELL VOLUME 85.5 fL (81.5-99.8); MEAN PLATELET VOLUME 10.9 fL (8.7-11.7); PLATELET COUNT 68 10^3/uL (150-400); RED BLOOD CELL COUNT 2.42 10^6/uL (4.40-6.38); RED CELL DISTRIBUTION WIDTH 14.1 % (11.5-15.2)
[2016-04-06 05:35] LABS: PLATELET CLUMPS FLAG 300 (0-99)
[2016-04-06 05:36] LABS: ADD SCAN? NO
[2016-04-06 05:38] LABS: % IMMATURE GRANULYOCYTES 1.5 % (0.0-1.1); ABSOLUTE IMMATURE GRANULOCYTES 0.01 10^3/uL (0.00-0.10); ADD DIFF? NO
[2016-04-06] MEDS: MEROPENEM 1 GM in NS 100 ML IV SCH ×2 (05:47→13:48)
[2016-04-06] MEDS: morphINE SR 30 MG TAB PO SCH ×2 (05:47→13:48)
[2016-04-06] MEDS: ACYCLOVIR 400 MG TAB PO SCH ×2 (05:47→13:48)
[2016-04-06] MEDS: FLUCONAZOLE/NaCl 100 MG in BAG 0 ML IV SCH (07:54)
--- NOTE | 2016-04-06 11:14 | PCMIDPN ---
Assessment/Plan: 1. 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 Still has low-grade fevers, etiology unclear. For now, given clinical stability, would continue meropenem and fluconazole and hold off on further investigations (i.e., CT scans). Patient is adamant that he wants to go home. I told him I would discuss this with the rest of the team given that this was the 1st day I meeting him. Rest of the team is uncomfortable sending him home, as am I. If he wants to go home , the patient will need to sign out AMA. Repeat blood cultures are pending. 2. History of oral/tongue ulcerations: Resolved. 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 3. History of oral candidiasis: Continue fluconazole as is for 14 days. Thrush is gone. Subjective: Tells me I need to go home. Read about his 2 dogs. States that 1 is not eating. Denies headache, visual change, states sores in his mouth are better. No odynophagia or dysphagia. No cough or shortness of breath no abdominal pain , burning with urination or diarrhea. No new rashes or lumps or bumps. No confusion. Will not let me examine his genitourinary area/ perirectal area. Objective: Meropenem 1 g IV q.8 hours day 3. Fluconazole 100 mg IV daily day 4 Acyclovir 400 mg three times daily day 3 Status post vancomycin, which was discontinued yesterday T-max 38.2degrees Vital Signs Temp Pulse Resp BP Pulse Ox 36.6 C 76 16 111/77 90 L 04/06/16 07:41 04/06/16 07:41 04/06/16 07:41 04/06/16 07:41 04/06/16 07:41 Laboratory Results 04/06/16 05:16 04/04/16 05:05 04/05/16 04/06/16 04/07/16 05:59 05:59 05:59 Intake Total 2720 2700 Output Total 2 Balance 2720 2698 ANC 127 No new microbiology HSV VZV PCR April 03 in mouth sores negative - Physical Exam General Appearance: other (Alopecia noted. Slightly edematous eyelids, but patient states this is old. Mild conjunctival injection bilaterally. no sinus process tenderness. Nontoxic.) EENT: other (No oral lesions noted), No scleral icterus, No thrush Respiratory: lungs clear Cardiac/Chest: regular rate, rhythm (Hyperdynamic precordium) Abdomen: non-tender, soft Skin: other (Very dry skin palm of right hand.) ICD10 Worksheet Patient Problems: Problems Problem Status Diagnosed Neutropenic fever Acute
[2016-04-06 12:06] VITALS: BP 135/84; PULSE 85; RESP 18; O2SAT 98
[2016-04-06 13:50] VITALS: TEMP 97.6
--- NOTE | 2016-04-06 13:59 | SOAPPROG ---
SOAP Progress Note Assessment/Plan: A/P: * Neutropenic fever without source: Appreciate ID. No G-CSF given tx with bleomycin. Low grade temp this a.m. and pending cxs. * IIIA NSGCT: C4D16 (last dose) Bleomycin received yesterday. Discussed d/c with Drs. Art and Chana. We agree that d/c is premature with continued neutropenia, low grade temp, and pending cxc. He plans to leave AMA. 04/06/16 13:59 Subjective: Wants to go home. No complaints. No SOB. Feels neck swelling is better. O: 38.2 this morning. Gen: NAD. Lungs: CTA. Skin: port nontender. Microbiology Laboratory Tests 04/06/16 05:16 WBC 0.67 L* Hgb 7.4 L Plt Count 68 L Objective: Vital Signs Temp Pulse Resp BP Pulse Ox 36.4 C 85 18 135/84 H 98 04/06/16 13:50 04/06/16 12:00 04/06/16 12:00 04/06/16 12:00 04/06/16 12:00 Laboratory Results 04/06/16 05:16 04/04/16 05:05 04/05/16 04/06/16 04/07/16 05:59 05:59 05:59 Intake Total 2720 2700 Output Total 2 Balance 6170 8407 ICD10 Worksheet Patient Problems: Problems Problem Status Diagnosed Neutropenic fever Acute
[2016-04-06] MEDS ORDERED: methylPREDNISolone SOD SUCC 125 MG/2 ML VIAL IVP ONE (14:17)
--- NOTE | 2016-04-06 18:44 | PDDCSUM ---
Discharge Summary Discharge Summary: . This patient left the hospital against medical advice today despite efforts by myself, Dr. Sosa Coppola, and Dr. Andie Jaimes to convince him to stay and continue treatment here. Of note the patient was having a newly observe rash on his chest and abdomen today, and increase in swelling around his eyelids, consistent with possible allergic reaction to his meropenem antibiotic. He was given some Benadryl and Solu-Medrol for this and instructed that he should continue to take Benadryl as needed at home and return to the ER if he is having worsening symptoms. There were no signs of anaphylaxis. At the time of the patient's leaving I reviewed his situation with Dr. Root again. As he is having reaction probably to his meropenem, we are prescribing Levaquin for him and I did give him prescription for 7 tablets of 750 mg Levaquin and instructed him to fill that out start taking it. The patient was continuing to have fevers today. He has ongoing neutropenia and no diagnosed organism or defined site of infection, therefore he is felt to be at high risk for significant complications of his current situation. In addition it is noteworthy that this patient takes chronic narcotic pain medicines at home. During his hospital stay he watch the clock regularly for when his next narcotic dose would come, and he asked repeatedly during his hospital stay whether we would be prescribing narcotics for him when he was discharged from the hospital. On this date he told me that he spoke to Dr. Germain office and they informed him that he would have to get any narcotic prescription from us here. However when Dr. Jaimes and I reviewed that clinic records the patient had been given a one-month supply prescription for his MS Contin on March 27, 6 days before this admission. This was sent to the [facility] pharmacy here on this facility. He also was given a few days before that a one-month prescription for Oxycodone through the same pharmacy. The patient was instructed that he would have to continue getting his pain medicines from Dr. Germain, his prescribing physician. No prescriptions for narcotics were given at the time of his leaving here.
== END 2016-04-06 15:20 | disposition left against medical advice (07) | DRG 809 ==
LOC: F1N 22:40
PROVIDERS: ADMIT Internal Medicine; ATTEND Internal Medicine
DX: D70.9 Neutropenia, unspecified (principal); R50.81 Fever presenting with conditions classified elsewhere; C77.4 Secondary and unspecified malignant neoplasm of inguinal and lower limb lymph nodes; C62.90 Malignant neoplasm of unspecified testis, unspecified whether descended or undescended; D61.810 Antineoplastic chemotherapy induced pancytopenia; B37.0 Candidal stomatitis; K12.31 Oral mucositis (ulcerative) due to antineoplastic therapy; F11.20 Opioid dependence, uncomplicated; E87.1 Hypo-osmolality and hyponatremia; E87.6 Hypokalemia; F17.210 Nicotine dependence, cigarettes, uncomplicated
CPT/HCPCS: 87529-90; 96365; J0692; J1200; J1450; J2185; J3370; J9040

== ENCOUNTER 2016-07-25 19:21 | Emergency (ER) | payer MEDICAID ==
--- NOTE | 2016-07-25 20:48 | EDPHY ---
H & P Stated Complaint: coughestion, cough X 3 weeks Time Seen by Provider: 07/25/16 19:35 HPI/ROS: CHIEF COMPLAINT: Cough HISTORY OF PRESENT ILLNESS: 41-year-old male presents emergency department complaining of a cough x3 weeks. Patient reports some nasal congestion. He denies fevers or chills. He does feel fatigued. Patient called his doctor who is his oncologist Dr. Germain office who recommended he come to the emergency department. Patient has a history of testicular cancer, he had surgery 8 months ago and finished chemotherapy 5 months ago. Patient denies fevers, no sore throat, no headache, no chest pain or shortness of breath. Patient does smoke 1 pack of cigarettes a day. REVIEW OF SYSTEMS: A comprehensive 10 point review of systems is otherwise negative aside from elements mentioned in the history of present illness. Source: Patient Exam Limitations: No limitations - Personal History Current Tetanus/Diphtheria Vaccine: Yes Current Tetanus Diphtheria and Acellular Pertussis (TDAP): Yes Tetanus Vaccine Date: less then 10 - Medical/Surgical History Hx Asthma: Yes Hx Chronic Respiratory Disease: No Hx Diabetes: No Hx Cardiac Disease: No Hx Renal Disease: No Hx Cirrhosis: No Hx Alcoholism: No Hx HIV/AIDS: No Hx Splenectomy or Spleen Trauma: No Other PMH: testicular CA, status post surgery and chemotherapy. surgery right hand surgery. - Social History Smoking Status: Heavy smoker - Physical Exam Exam: Physical Exam Gen: Alert and Oriented, NAD HEENT: PERRL, moist mucous membranes, bilateral TMs normal NECK: no meningismus CV: regular rate and regular rhythm PULM: diffuse rhonchi ABDOMEN: soft, non tender to palpation, BS present BACK: No CVA tenderness NEURO: Neurologically grossly intact EXTREMITIES: normal appearing SKIN: no rash or break in skin on exposed skin PSYCH: answers questions appropriately. Constitutional: Initial Vital Signs Temperature (C) 37.1 C 07/25/16 19:29 Heart Rate 81 07/25/16 19:29 Respiratory Rate 16 07/25/16 19:29 Blood Pressure 114/79 07/25/16 19:29 O2 Sat (%) 94 07/25/16 19:29 O2 Delivery Mode Room Air Allergies/Adverse Reactions: No Known Allergies Allergy (Verified 07/25/16 19:28) Home Medications: Medication Instructions Recorded oxyCODONE IR [Oxycodone Ir (*)] 10 mg PO Q4-6PRN PRN 04/02/16 levOFLOXACIN [levAQUIN (*)] 750 mg PO DAILY #10 tab 07/25/16 Medical Decision Making - Diagnostics Imaging Results: Imaging Impressions Chest X-Ray 07/25/16 19:35 Impression: Left upper lobe pneumonia. Imaging: I viewed and interpreted images myself ED Course/Re-evaluation: 41-year-old male with history of testicular pain cancer status post chemotherapy finishing it 5 months ago presents with cough for 3 weeks. Chest x -ray shows a left upper lobe pneumonia. Patient will be treated with a course of Levaquin. He has normal room air oxygen saturations and is afebrile in the emergency department. He was given a DuoNeb prior to discharge in discharged home with an albuterol inhaler. Patient agrees to follow up with his herbarium curator to rule out an underlying mass, I did discuss this possibility with the patient. Differential Diagnosis: Diagnosis considered but not limited to pneumonia, pulmonary embolism, metastasis - Data Points Medications Given: Discontinued Medications Albuterol Sulfate (Proventil Inh Prepack) 1 mdi TAKEHOME EDNOW ONE Stop: 07/25/16 21:44 Last Admin: 07/25/16 21:59 Dose: 1 mdi Albuterol/Ipratropium (Duoneb) 3 ml IH EDNOW ONE Stop: 07/25/16 20:52 Last Admin: 07/25/16 21:00 Dose: 3 ml Levofloxacin (Levaquin) 750 mg PO EDNOW ONE PRN Reason: Protocol Stop: 07/25/16 20:52 Last Admin: 07/25/16 21:00 Dose: 750 mg Oxycodone HCl (Oxycodone Ir) 10 mg PO EDNOW ONE Stop: 07/25/16 21:55 Last Admin: 07/25/16 21:56 Dose: 10 mg Departure - Departure Disposition: Home, Routine, Self-Care Clinical Impression: Pneumonia Qualifiers: Pneumonia type: due to unspecified organism Laterality: left Lung location: upper lobe of lung Qualified Code(s): J18.1 - Lobar pneumonia, unspecified organism Condition: Good Instructions: Albuterol (By breathing), Community Acquired Pneumonia (ED) Additional Instructions: You need to take your antibiotics as prescribed. Follow up with Dr. Satirik your oncologist in the next 3-7 days to ensure this is not a underlying mass in your lung. Use your albuterol inhaler 2 puffs every 4-6 hours. Return to the emergency department for any worsening symptoms, shortness of breath, chest pain. Referrals: Jose Alfredo Germain MD [Medical Doctor] - As per Instructions Prescriptions: levOFLOXACIN [levAQUIN (*)] 750 mg PO DAILY #10 tab
[2016-07-25] MEDS ORDERED: IPRATROPIUM/ALBUTEROL 3 ML DEYVIAL IH ONE (20:51)
[2016-07-25 21:01] VITALS: RESP 20
[2016-07-25] MEDS ORDERED: ALBUTEROL INH PREPACK MDI TAKEHOME ONE (21:43)
[2016-07-25] MEDS ORDERED: oxyCODONE IR 5 MG TAB PO ONE (21:54)
[2016-07-25 22:01] VITALS: BP 126/87; PULSE 95; TEMP 99; O2SAT 95
== END 2016-07-25 22:01 | disposition home or self-care (01) ==
DX: J18.9 Pneumonia, unspecified organism (principal); J45.909 Unspecified asthma, uncomplicated; F17.200 Nicotine dependence, unspecified, uncomplicated; Z85.47 Personal history of malignant neoplasm of testis

== ENCOUNTER 2018-04-17 00:40 | Emergency (ER) | payer OTHER ==
[2018-04-17 01:26] LABS: PLATELET COUNT 239 10^3/uL (150-400)
[2018-04-17] MEDS ORDERED: DILTIAZEM 25 MG/5 ML VIAL IVP ONE (01:32)
--- NOTE | 2018-04-17 01:32 | EDPHY ---
H & P Stated Complaint: heart racing x30 min Time Seen by Provider: 04/17/18 00:54 HPI/ROS: Chief Complaint: Palpitations HPI: 43-year-old HIV-positive male was getting ready for bed tonight when he had the sudden onset of palpitations and irregular heartbeat. He does not have a history of similar episodes in the past. Patient had been off of his HIV meds for 4 days but started those again yesterday. No fevers or chills. No cough. No lightheadedness or fainting. No chest pain or shortness of breath. He is complaining of palpitations at this time. ROS: 10 systems were reviewed and were negative except those elements noted in the HPI. PMH: HIV, testicular cancer Social History: No smoking, occasional alcohol, no recreational drug use Family History: non-contributory Physical Exam: Gen: Awake, Alert, No Distress HEENT: Nose: no rhinorrhea Eyes: PERRLA, EOMI Mouth: Moist mucosa Neck: Supple, no JVD Chest: nontender, lungs clear to auscultation Heart: S1, S2 normal, tachycardic, irregularly irregular Abd: Soft, non-tender, no guarding Back: no CVA tenderness, no midline tenderness Ext: no edema, non-tender Skin: no rash Neuro: CN II-XII intact, Sensation grossly intact, Strength 5/5 in bilateral upper and lower extremities - Personal History Current Tetanus/Diphtheria Vaccine: Yes Tetanus Vaccine Date: less then 10 - Medical/Surgical History Hx Asthma: Yes Hx Chronic Respiratory Disease: No Hx Diabetes: No Hx Cardiac Disease: No Hx Renal Disease: No Hx Cirrhosis: No Hx Alcoholism: No Hx HIV/AIDS: Yes Hx Splenectomy or Spleen Trauma: No Other PMH: testicular CA, status post surgery and chemotherapy. surgery right hand surgery, HIV - Social History Smoking Status: Heavy smoker Constitutional: Initial Vital Signs Temperature (C) 36.9 C 04/17/18 00:43 Heart Rate 114 H 04/17/18 00:43 Respiratory Rate 16 04/17/18 00:43 Blood Pressure 143/104 H 04/17/18 00:43 O2 Sat (%) 95 04/17/18 00:43 O2 Delivery Mode Room Air Allergies/Adverse Reactions: No Known Allergies Allergy (Verified 04/17/18 00:46) Home Medications: Medication Instructions Recorded Metoprolol Tartrate 25 mg PO BID #60 tablet 04/17/18 T[place] 04/17/18 Medical Decision Making - Diagnostics EKG Interpretation: ECG time 12:55 a.m., atrial fibrillation with a ventricular rate of 126, no acute ST or T-wave changes. ED Course/Re-evaluation: 43-year-old male with new onset atrial fibrillation. He has a very good story for onset of 45 min prior to her arrival. No history of the same. I have offered him sedation with electrocardioversion which he is refusing at this time. I have discussed with Dr. Cyrus Bhakta, cardiology. He is recommending diltiazem IV now to see if he converts. He if the patient does not wish to stay in the hospital plan will be to start him on metoprolol 25 twice a day, aim to keep his heart rate under 110. Patient can follow up in the cardiology office today. If he does not convert will give him Lovenox. Patient has been observed in the emergency department for an hour after the IV diltiazem. Heart rate has been in the 80s to 90s but he remains in atrial fibrillation. We have discussed his options at this point. He would prefer to follow up with Cardiology as an outpatient today. I have given him Lovenox 80 mg subcutaneously. I have written a prescription for metoprolol 25 mg twice a day as per Dr. Bhakta' request. Patient knows that he must follow up in Cardiology office today. He will return to the emergency department for any concerns. - Data Points Laboratory Results: Laboratory Results 04/17/18 01:14 04/17/18 01:14 04/17/18 04/17/18 01:14 01:14 WBC 9.43 10^3/uL 10^3/uL (3.80-9.50) RBC 4.55 10^6/uL 10^6/uL (4.40-6.38) Hgb 15.3 g/dL g/dL (13.7-17.5) Hct 42.4 % % (40.0-51.0) MCV 93.2 fL fL (81.5-99.8) MCH 33.6 pg pg (27.9-34.1) MCHC 36.1 g/dL g/dL (32.4-36.7) RDW 11.9 % % (11.5-15.2) Plt Count 239 10^3/uL 10^3/uL (150-400) MPV 8.9 fL fL (8.7-11.7) Neut % (Auto) 51.8 % % (39.3-74.2) Lymph % (Auto) 31.4 % % (15.0-45.0) Loving % (Auto) 12.3 % % (4.5-13.0) Eos % (Auto) 3.9 % % (0.6-7.6) Baso % (Auto) 0.5 % % (0.3-1.7) Nucleat RBC Rel Count 0.0 % % (0.0-0.2) Absolute Neuts (auto) 4.88 10^3/uL 10^3/uL (1.70-6.50) Absolute Lymphs (auto) 2.96 10^3/uL 10^3/uL (1.00-3.00) Absolute Monos (auto) 1.16 10^3/uL H 10^3/uL (0.30-0.80) Absolute Eos (auto) 0.37 10^3/uL 10^3/uL (0.03-0.40) Absolute Basos (auto) 0.05 10^3/uL 10^3/uL (0.02-0.10) Absolute Nucleated RBC 0.00 10^3/uL 10^3/uL (0-0.01) Immature Gran % 0.1 % % (0.0-1.1) Immature Gran # 0.01 10^3/uL 10^3/uL (0.00-0.10) Sodium 136 mEq/L mEq/L (135-145) Potassium 4.0 mEq/L mEq/L (3.5-5.2) Chloride 107 mEq/L mEq/L (97-110) Carbon Dioxide 22 mEq/l mEq/l (22-31) Anion Gap 7 mEq/L mEq/L (6-14) BUN 14 mg/dL mg/dL (7-23) Creatinine 1.2 mg/dL mg/dL (0.7-1.3) Estimated GFR > 60 Glucose 112 mg/dL H mg/dL (70-100) Calcium 9.3 mg/dL mg/dL (8.5-10.4) Medications Given: Discontinued Medications Diltiazem HCl (Cardizem 25 Mg/5 Ml Vial) 20 mg IVP EDNOW ONE Stop: 04/17/18 01:33 Last Admin: 04/17/18 01:46 Dose: 20 mg Sodium Chloride (Ns) 1,000 mls @ 0 mls/hr IV EDNOW ONE; Wide Open PRN Reason: Protocol Stop: 04/17/18 01:42 Last Admin: 04/17/18 01:46 Dose: 1,000 mls Departure - Departure Disposition: Home, Routine, Self-Care Clinical Impression: Atrial fibrillation Condition: Good Instructions: A-fib (Atrial Fibrillation) (ED) Additional Instructions: It is very important that you be seen by the road mechanic later today. If for some reason you cannot be seen it is important return to the emergency department for further evaluation. Referrals: Cyrus Bhakta MD [Medical Doctor] - As per Instructions Prescriptions: Metoprolol Tartrate 25 mg PO BID #60 tablet
[2018-04-17] MEDS ORDERED: NS 1,000 ML IV ONE (01:41)
[2018-04-17] MEDS ORDERED: ENOXAPARIN 80 MG/0.8 ML SYR SC ONE (02:47)
[2018-04-17 03:11] VITALS: BP 115/92
--- NOTE | 2018-04-17 03:15 | CPEKG ---
Test Reason : OPEN Blood Pressure : / mmHG Vent. Rate : 126 BPM Atrial Rate : 000 BPM P-R Int : 108 ms QRS Dur : 081 ms QT Int : 322 ms P-R-T Axes : 000 008 058 degrees QTc Int : 467 ms Atrial fibrillation Confirmed by Alo Decker ([id number]) on 04/17/2018 3:15:03 AM Referred By: Alo Decker Confirmed By:Alo Decker
== END 2018-04-17 03:12 | disposition home or self-care (01) ==
DX: I48.91 Unspecified atrial fibrillation (principal); B20 Human immunodeficiency virus [HIV] disease; E86.9 Volume depletion, unspecified; F17.200 Nicotine dependence, unspecified, uncomplicated; Z85.47 Personal history of malignant neoplasm of testis
CPT/HCPCS: 96374; J1650